=== PATIENT | male | born 1990 | race Caucasian/White ===

== ENCOUNTER 2018-01-08 11:11 | Emergency (ER) | payer BC, OTHER ==
--- NOTE | 2018-01-08 12:48 | RAD REPORT ---
EXAM DESCRIPTION: RAD - Knee Left 3 View - 01/08/2018 12:28 pm CLINICAL HISTORY: Left knee pain status post injury FINDINGS: 18 millimeter bony density lies adjacent to the tibial tubercle. Mild soft tissue swelling is present. It is uncertain if this is acute or chronic.If the patient has clinical symptoms to sugg est an acute avulsion then MRI would be recommended. Remainder of the exam is unremarkable
--- NOTE | 2018-01-08 12:59 | ER ---
Nurse's Notes [facility] Name: Hayden Rodriguez Age: 27 yrs Sex: Male : 1990 Arrival Date: 01/08/2018 Time: 11:14 Bed 24 Private MD: Nadeem Jeffrey Diagnosis: Internal derangement of knee Presentation: 01/08 11:22 Presenting complaint: Patient states: Left knee popped while knee boarding yesterday. aj Patient reports that knee is unastable. Transition of care: patient was not received from another setting of care. Onset of symptoms was January 07, 2018. Risk Assessment: Do you want to hurt yourself or someone else? Patient reports no desire to harm self or others. Initial Sepsis Screen: Does the patient meet any 2 criteria? No. Patient's initial sepsis screen is negative. Does the patient have a suspected source of infection? No. Patient's initial sepsis screen is negative. Care prior to arrival: None. 11:22 Method Of Arrival: Wheelchair aj 11:22 Acuity: ALMA 4 aj Triage Assessment: 11:24 General: Appears in no apparent distress. comfortable, Behavior is calm, cooperative, aj appropriate for age. Pain: Complains of pain in left knee. Neuro: Level of Consciousness is awake, alert, obeys commands, Oriented to person, place, time, situation. Respiratory: Airway is patent Trachea midline Respiratory effort is even, unlabored, Respiratory pattern is regular, symmetrical. Derm: Skin is intact, is healthy with good turgor, Skin is pink, warm \T\ dry. normal. Musculoskeletal: Reports pain in medial aspect of left knee. Historical: - Allergies: 11:24 No Known Allergies; aj - Home Meds: 11:24 None [Active]; aj - PMHx: 11:24 None; aj - PSHx: 11:24 None; aj - Immunization history:: Adult Immunizations up to date. - Social history:: Smoking status: Patient uses tobacco products, smokes one-half pack cigarettes per day, Patient uses alcohol, occasionally. - Ebola Screening: : Patient negative for fever greater than or equal to 101.5 degrees Fahrenheit, and additional compatible Ebola Virus Disease symptoms Patient denies exposure to infectious person Patient denies travel to an Ebola-affected area in the 21 days before illness onset No symptoms or risks identified at this time. Screenin:38 Abuse screen: Denies threats or abuse. Denies injuries from another. Nutritional hb screening: No deficits noted. Tuberculosis screening: No symptoms or risk factors identified. Fall Risk None identified. Assessment: 11:30 General: Appears in no apparent distress. Behavior is calm, cooperative. Pain: Pain hb currently is 8 out of 10 on a pain scale. Neuro: Level of Consciousness is awake, alert, obeys commands, Oriented to person, place, time, situation. Cardiovascular: Capillary refill < 3 seconds Patient's skin is warm and dry. Respiratory: Airway is patent Trachea midline Respiratory effort is even, unlabored, Respiratory pattern is regular, symmetrical. Musculoskeletal: Reports pain in left knee. 13:25 Reassessment: PT REFUSES TO WHERE KNEE IMMOBILIZER FROM ER IS GOING TO FOLLOW UP NOW ss WITH DR. JEFFREY. Vital Signs: 11:24 BP 138 / 86; Pulse 76; Resp 18; Temp 98.1; Pulse Ox 98% on R/A; Weight 103.42 kg; aj Height 5 ft. 7 in. (170.18 cm); 11:24 Body Mass Index 35.71 (103.42 kg, 170.18 cm) aj ED Course: 11:14 Patient arrived in ED. sb2 11:15 Nadeem Jeffrey MD is Private Physician. sb2 11:24 Triage completed. aj 11:24 Arm band placed on left wrist. Patient placed in an exam room. aj 11:29 Abelardo Zimmerman MD is Attending Physician. gs 11:35 Patient has correct armband on for positive identification. Bed in low position. Call hb light in reach. Side rails up X 1. 11:37 Alla Kenyon, BROOK is Primary Nurse. hb 12:22 Knee Left 3 View XRAY In Process Unspecified. EDMS 12:22 X-ray completed. Portable x-ray completed in exam room. Patient tolerated procedure jb2 well. 13:25 No provider procedures requiring assistance completed. Patient did not have IV access ss during this emergency room visit. Administered Medications: No medications were administered Outcome: 12:59 Discharge ordered by MD. gs 13:25 Discharged to home via wheelchair, with family. ss 13:25 Condition: good 13:25 Discharge instructions given to patient, Instructed on discharge instructions, follow up and referral plans. medication usage. 13:26 Patient left the ED. ss Signatures: Dispatcher [employer] Myriam Gallegos RN RN aj Buechter, Jesse jb2 Stephania Jalloh RN RN ss Baxter, Heather, RN RN hb Starr, Gregory, MD MD gs Billeau, Sheri sb2
--- NOTE | 2018-01-08 12:59 | EDPHYS ---
Physician Documentation [facility] Name: Hayden Rodriguez Age: 27 yrs Sex: Male : 1990 Arrival Date: 01/08/2018 Time: 11:14 Bed 24 Private MD: Nadeem Moffett ED Physician Abelardo Zimmerman HPI: 01/08 12:57 This 27 yrs old Male presents to ER via Wheelchair with complaints of Knee gs Injury. 12:57 The patient presents with an injury. The complaints affect the left knee. gs 13:14 Context: resulted from twisting of the extremity, knee boarding. Onset: The gs symptoms/episode began/occurred yesterday. Modifying factors: The symptoms are alleviated by nothing. the symptoms are aggravated by movement, bending knee. Associated signs and symptoms: Pertinent negatives swelling, weakness. Severity of symptoms: At their worst the symptoms were moderate, in the emergency department the symptoms are unchanged. The patient has not experienced similar symptoms in the past. Historical: - Allergies: 11:24 No Known Allergies; aj - Home Meds: :24 None [Active]; aj - PMHx: :24 None; aj - PSHx: 11:24 None; aj - Immunization history:: Adult Immunizations up to date. - Social history:: Smoking status: Patient uses tobacco products, smokes one-half pack cigarettes per day, Patient uses alcohol, occasionally. - Ebola Screening: : Patient negative for fever greater than or equal to 101.5 degrees Fahrenheit, and additional compatible Ebola Virus Disease symptoms Patient denies exposure to infectious person Patient denies travel to an Ebola-affected area in the 21 days before illness onset No symptoms or risks identified at this time. ROS: 13:14 All other systems are negative. gs Exam: 13:14 Neck: Trachea midline, no thyromegaly or masses palpated, and no cervical gs lymphadenopathy. Supple, full range of motion without nuchal rigidity, or vertebral point tenderness. No Meningismus. Cardiovascular: Regular rate and rhythm with a normal S1 and S2. No gallops, murmurs, or rubs. Normal PMI, no JVD. No pulse deficits. Respiratory: Lungs have equal breath sounds bilaterally, clear to auscultation and percussion. No rales, rhonchi or wheezes noted. No increased work of breathing, no retractions or nasal flaring. Abdomen/GI: Soft, non-tender, with normal bowel sounds. No distension or tympany. No guarding or rebound. No evidence of tenderness throughout. Back: No spinal tenderness. No costovertebral tenderness. Full range of motion. Skin: Warm, dry with normal turgor. Normal color with no rashes, no lesions, and no evidence of cellulitis. Neuro: Awake and alert, GCS 15, oriented to person, place, time, and situation. Cranial nerves II-XII grossly intact. Motor strength 5/5 in all extremities. Sensory grossly intact. Cerebellar exam normal. Normal gait. 13:14 Constitutional: The patient appears alert, awake. 13:14 Musculoskeletal/extremity: Circulation is intact in all extremities. Sensation intact. Joints: the medial aspect of left knee and left knee displays painful range of motion, tenderness. Vital Signs: 11:24 BP 138 / 86; Pulse 76; Resp 18; Temp 98.1; Pulse Ox 98% on R/A; Weight 103.42 kg; aj Height 5 ft. 7 in. (170.18 cm); 11:24 Body Mass Index 35.71 (103.42 kg, 170.18 cm) aj MDM: 11:46 Patient medically screened. gs 13:14 Data reviewed: vital signs, nurses notes, radiologic studies. Counseling: I had a gs detailed discussion with the patient and/or guardian regarding: the historical points, exam findings, and any diagnostic results supporting the discharge/admit diagnosis, the presence of at least one elevated blood pressure reading (>120/80) during this emergency department visit, the need for outpatient follow up. Special discussion: I have referred the patient to see his PCP for further evaluation of high blood pressure. 01/08 11:50 Order name: Knee Left 3 View XRAY; Complete Time: 12:50 gs Administered Medications: No medications were administered Disposition: 01/08/18 12:59 Discharged to Home. Impression: Internal derangement of knee. - Condition is Stable. - Discharge Instructions: Knee - Cartilage (Meniscus) Injury, Knee Pain, Managing Your High Blood Pressure. - Medication Reconciliation Form, Thank You Letter, Antibiotic Education, Prescription Opioid Use form. - Follow up: Private Physician; When: 2 - 3 days. Signatures: Dispatcher [employer] Myriam Gallegos RN RN aj Smirch, Shelby, RN RN ss Starr, Gregory, MD MD gs Corrections: (The following items were deleted from the chart) 13:26 12:59 01/08/2018 12:59 Discharged to Home. Impression: Internal derangement of knee. ss Condition is Stable. Forms are Medication Reconciliation Form, Thank You Letter, Antibiotic Education, Prescription Opioid Use. Follow up: Private Physician; When: 2 - 3 days. gs
== END 2018-01-08 13:26 | disposition home or self-care (01) ==
LOC: ER 11:11
DX: M23.92 Unspecified internal derangement of left knee (principal); F17.210 Nicotine dependence, cigarettes, uncomplicated
CPT/HCPCS: 99283